=== PATIENT | female | born 1995 | race Caucasian/White ===

== ENCOUNTER → 2016-11-12 | Outpatient (CLI) | payer BC | END | disposition home or self-care (01) | LOC: MW.CHFP 15:20 | PROVIDERS: ATTEND Physician Assistant | DX: R68.89 Other general symptoms and signs (principal) | CPT/HCPCS: 87804 ==

== ENCOUNTER 2017-11-07 15:32 | Emergency (ER) | payer BC ==
--- NOTE | 2017-11-07 16:02 | EDM.PDOC ---
ED HPI GENERAL MEDICAL PROBLEM - General Chief Complaint: General Stated Complaint: FEVER AND BODYACHES Time Seen by Provider: 11/07/17 15:38 Source of Information: Reports: Patient History Limitations: Reports: No Limitations - History of Present Illness INITIAL COMMENTS - FREE TEXT/NARRATIVE: HISTORY AND PHYSICAL: History of present illness: Patient is a 22-year-old female who presents to the emergency room with complaints of fever, chills and cough since this morning. She denies any chest pain, shortness of breath, abdominal pain, nausea, vomiting or diarrhea/ constipation. She has received the influenza vaccine. Review of systems: As per history of present illness and below otherwise all systems reviewed and negative. Past medical history: As per history of present illness and as reviewed below otherwise noncontributory. Surgical history: As per history of present illness and as reviewed below otherwise noncontributory. Social history: No reported history of drug or alcohol abuse. Family history: As per history of present illness and as reviewed below otherwise noncontributory. Physical exam: General: Well-developed and well-nourished 22-year-old female. Alert and oriented. Nontoxic appearing and in no acute distress. HEENT: Atraumatic, normocephalic, pupils reactive, negative for conjunctival pallor or scleral icterus, mucous membranes dry, cobblestoning noted otherwise throat clear, neck supple, nontender, trachea midline. Lungs: Diminished throughout, breath sounds equal bilaterally, chest nontender. Heart: S1S2, regular, negative for clicks, rubs, or JVD. Abdomen: Soft, nondistended, nontender. Negative for masses or hepatosplenomegaly. Negative for costovertebral tenderness. Pelvis: Stable nontender. Genitourinary: Deferred. Rectal: Deferred. Extremities: Atraumatic, negative for cords or calf pain. Neurovascular unremarkable. Neuro: Awake, alert, oriented. Cranial nerves II through XII unremarkable. Cerebellum unremarkable. Motor and sensory unremarkable throughout. Exam nonfocal. Patient's pulse is tachycardic and she states she does not feel well. I will give her a liter of normal saline and Tylenol along with routine lab work. CBC, CMP are normal. + Mononucleousis. BP has been low, I did offer her admssion at this time. Patient would like to finish her fluids, patient reports "I'm always low" and her mother states she is usually 100/50's. Will let patient continue fluids and reassess admission status. CXR is negative for pneumonia. Incidental finding of soft tissue prominence to the left mediastinum as discussed which could represent prominent main pulmonary artery, tumor or adenopathy. Due to the patient having +monospot (may be the adenopathy from the mono), informed patient of this finding and requested she follow up with her PCP for re-evaluation once the mono has resolved. Blood pressure is now 100/60. I did offer them admission again. They state they will go home as patient feels improved and her mother is staying with her. Supportive care measures were reviewed with her. They deny any further questions at this time. Diagnostics: CBC, CMP, Influenza, CXR, monospot, blood culture, UA Therapeutics: 1 liter NS, Tylenol, Ibuprofen Impression: Mononucleousis Plan: 1. Labs were normal with the exception of +Monospot and Chest x-ray lymph node. There was an enlarged soft tissue area noted that should be re-looked at once here illness has resolved. This is likely just an enlarged lymph node due to your mono illness. 2. Supportive care measures such as Tylenol and or ibuprofen as needed for pain and fever management. Please drink small frequent sips of fluids to prevent dehydration. Zofran has been prescribed for you to alleviate nausea. Phenergan with codeine to alleviate discomfort associated with your cough. This medication may cause drowsiness suture do not take it while driving or needing to be functioning at work. 3. Chicot is contagious so please be sure you're doing good handwashing and not sharing any eating utensils. 4. Please avoid any contact sports and be careful with any injury to the abdomen. As we discussed you are at increased risk for splenic injury. 5. No work for the next 4 days. Please follow-up with your primary care provider for further work restrictions or release back to work. 6. If at any time year symptoms worsen please return to the emergency room as needed and as discussed. Definitive disposition and diagnosis as appropriate pending reevaluation and review of above. Onset: Today Duration: Hour(s): Location: Reports: Head, Chest Generalized Pain Score (Numeric/FACES): 4 - Related Data Allergies Allergy/AdvReac Type Severity Reaction Status Date / Time amoxicillin [From Augmentin] Allergy Rash Verified 11/07/17 15:47 clarithromycin [From Biaxin] Allergy Rash Verified 11/07/17 15:47 clavulanic acid Allergy Rash Verified 11/07/17 15:47 [From Augmentin] Home Meds: Home Meds Escitalopram [Lexapro] 10 mg PO BEDTIME 11/07/17 [History] ED ROS GENERAL - Review of Systems Review Of Systems: ROS reveals no pertinent complaints other than HPI. ED EXAM, GENERAL - Physical Exam Exam: See Below (See dictation) Course - Vital Signs Last Recorded V/S: Last Vital Signs Temp 99.5 F 11/07/17 18:47 Pulse 104 H 11/07/17 18:47 Resp 18 11/07/17 18:47 BP 100/60 11/07/17 18:47 Pulse Ox 98 11/07/17 18:47 - Orders/Labs/Meds Orders: Active Orders 24 hr Category Date Time Status RT Aerosol Therapy [RC] ASDIRECTED Care 11/07/17 16:11 Active Chest 2V [CR] Stat Exams 11/07/17 16:06 Taken CULTURE BLOOD [BC] Stat Lab 11/07/17 16:27 Results CULTURE BLOOD [BC] Stat Lab 11/07/17 18:26 Received Blood Culture x2 Reflex Set [OM.PC] Stat Oth 11/07/17 17:49 Ordered Labs: Laboratory Tests 11/07/17 11/07/17 11/07/17 Range/Units 16:27 16:27 16:27 WBC 6.12 (4.0-11.0) K/uL RBC 5.11 (4.30-5.90) M/uL Hgb 14.8 (12.0-16.0) g/dL Hct 43.6 (36.0-46.0) % MCV 85.3 (80.0-98.0) fL MCH 29.0 (27.0-32.0) pg MCHC 33.9 (31.0-37.0) g/dL RDW Std Deviation 39.5 (28.0-62.0) fl RDW Coeff of Adelaida 13 (11.0-15.0) % Plt Count 266 (150-400) K/uL MPV 9.60 (7.40-12.00) fL Neut % (Auto) 73.2 (48.0-80.0) % Lymph % (Auto) 11.3 L (16.0-40.0) % Ch[place]ot % (Auto) 13.6 (0.0-15.0) % Eos % (Auto) 1.6 (0.0-7.0) % Baso % (Auto) 0.3 (0.0-1.5) % Neut # (Auto) 4.5 (1.4-5.7) K/uL Lymph # (Auto) 0.7 (0.6-2.4) K/uL Ch[place]ot # (Auto) 0.8 (0.0-0.8) K/uL Eos # (Auto) 0.1 (0.0-0.7) K/uL Baso # (Auto) 0.0 (0.0-0.1) K/uL Nucleated RBC % 0.0 /100WBC Nucleated RBCs # 0 K/uL Lactate (0.20-2.00) mmol/L Sodium 137 (136-145) mmol/L Potassium 3.8 (3.5-5.1) mmol/L Chloride 101 (98-107) mmol/L Carbon Dioxide 23.4 (21.0-32.0) mmol/L BUN 9 (7.0-18.0) mg/dL Creatinine 0.6 (0.6-1.0) mg/dL Est Cr Clr Drug Dosing 128.08 mL/min Estimated GFR (MDRD) > 60.0 ml/min Glucose 88 (74-106) mg/dL Calcium 9.3 (8.5-10.1) mg/dL Total Bilirubin 0.3 (0.2-1.0) mg/dL AST 20 (15-37) IU/L ALT 17 (14-63) IU/L Alkaline Phosphatase 92 (46-116) U/L Total Protein 8.4 H (6.4-8.2) g/dL Albumin 4.5 (3.4-5.0) g/dL Globulin 3.9 H (2.0-3.5) g/dL Albumin/Globulin Ratio 1.2 L (1.3-2.8) Urine Color Urine Appearance Urine pH (5.0-8.0) Ur Specific Friendship (1.001-1.035) Urine Protein (NEGATIVE) mg/dL Urine Glucose (UA) (NEGATIVE) mg/dL Urine Ketones (NEGATIVE) mg/dL Urine Occult Blood (NEGATIVE) Urine Nitrite (NEGATIVE) Urine Bilirubin (NEGATIVE) Urine Urobilinogen (<2.0) EU/dL Ur Leukocyte Esterase (NEGATIVE) Urine RBC (0-2/HPF) Urine WBC (0-5/HPF) Ur Epithelial Cells (NONE-FEW) Urine Bacteria (NEGATIVE) Urine HCG, Qual (NEGATIVE) Monoscreen POSITIVE (NEG) 11/07/17 11/07/17 11/07/17 Range/Units 16:27 18:00 18:00 WBC (4.0-11.0) K/uL RBC (4.30-5.90) M/uL Hgb (12.0-16.0) g/dL Hct (36.0-46.0) % MCV (80.0-98.0) fL MCH (27.0-32.0) pg MCHC (31.0-37.0) g/dL RDW Std Deviation (28.0-62.0) fl RDW Coeff of Adelaida (11.0-15.0) % Plt Count (150-400) K/uL MPV (7.40-12.00) fL Neut % (Auto) (48.0-80.0) % Lymph % (Auto) (16.0-40.0) % Ch[place]ot % (Auto) (0.0-15.0) % Eos % (Auto) (0.0-7.0) % Baso % (Auto) (0.0-1.5) % Neut # (Auto) (1.4-5.7) K/uL Lymph # (Auto) (0.6-2.4) K/uL Ch[place]ot # (Auto) (0.0-0.8) K/uL Eos # (Auto) (0.0-0.7) K/uL Baso # (Auto) (0.0-0.1) K/uL Nucleated RBC % /100WBC Nucleated RBCs # K/uL Lactate 1.1 (0.20-2.00) mmol/L Sodium (136-145) mmol/L Potassium (3.5-5.1) mmol/L Chloride (98-107) mmol/L Carbon Dioxide (21.0-32.0) mmol/L BUN (7.0-18.0) mg/dL Creatinine (0.6-1.0) mg/dL Est Cr Clr Drug Dosing mL/min Estimated GFR (MDRD) ml/min Glucose (74-106) mg/dL Calcium (8.5-10.1) mg/dL Total Bilirubin (0.2-1.0) mg/dL AST (15-37) IU/L ALT (14-63) IU/L Alkaline Phosphatase (46-116) U/L Total Protein (6.4-8.2) g/dL Albumin (3.4-5.0) g/dL Globulin (2.0-3.5) g/dL Albumin/Globulin Ratio (1.3-2.8) Urine Color YELLOW Urine Appearance CLEAR Urine pH 6.5 (5.0-8.0) Ur Specific Friendship 1.010 (1.001-1.035) Urine Protein NEGATIVE (NEGATIVE) mg/dL Urine Glucose (UA) NEGATIVE (NEGATIVE) mg/dL Urine Ketones NEGATIVE (NEGATIVE) mg/dL Urine Occult Blood NEGATIVE (NEGATIVE) Urine Nitrite NEGATIVE (NEGATIVE) Urine Bilirubin NEGATIVE (NEGATIVE) Urine Urobilinogen 0.2 (<2.0) EU/dL Ur Leukocyte Esterase NEGATIVE (NEGATIVE) Urine RBC 2-4 (0-2/HPF) Urine WBC 0-2 (0-5/HPF) Ur Epithelial Cells FEW (NONE-FEW) Urine Bacteria FEW (NEGATIVE) Urine HCG, Qual NEGATIVE (NEGATIVE) Monoscreen (NEG) Meds: Medications Discontinued Medications Generic Name Dose Route Start Last Admin Trade Name Freq PRN Reason Stop Dose Admin Acetaminophen 1,000 mg 11/07/17 16:06 11/07/17 16:20 Tylenol Extra Strength PO 11/07/17 16:07 1,000 mg ONETIME ONE Administration Albuterol/Ipratropium 3 ml 11/07/17 16:11 11/07/17 16:20 Duoneb 3.0-0.5 Mg/3 Ml NEB 11/07/17 16:12 3 ml ONETIME ONE Administration Sodium Chloride 1,000 mls @ 999 mls/hr 11/07/17 16:06 11/07/17 16:21 Normal Saline IV 11/07/17 17:06 999 mls/hr STAT ONE Administration Ibuprofen 600 mg 11/07/17 18:20 11/07/17 18:47 Motrin PO 11/07/17 18:21 Not Given ONETIME ONE Ibuprofen 600 mg 11/07/17 18:42 11/07/17 18:47 Motrin PO 11/07/17 18:43 600 mg ONETIME ONE Administration Ibuprofen Confirm 11/07/17 18:42 11/07/17 18:47 Motrin Administered 11/07/17 18:43 Not Given Dose 600 mg .ROUTE .STK-MED ONE Departure - Departure Time of Disposition: 18:55 Disposition: Home, Self-Care 01 Clinical Impression: Mononucleosis - Discharge Information Instructions: Infectious Mononucleosis, [id number] Referrals: PCP,None [Primary Care Provider] - Forms: ED Department Discharge Additional Instructions: My general discharge The following information is given to patients seen in the emergency department who are being discharged to home. This information is to outline your options for follow-up care. We provide all patients seen in our emergency department with a follow-up referral. The need for follow-up, as well as the timing and circumstances, are variable depending upon the specifics of your emergency department visit. If you don't have a primary care physician on staff, we will provide you with a referral. We always advise you to contact your personal physician following an emergency department visit to inform them of the circumstance of the visit and for follow-up with them and/or the need for any referrals to a consulting specialist. The emergency department will also refer you to a specialist when appropriate. This referral assures that you have the opportunity for follow-up care with a specialist. All of these measure are taken in an effort to provide you with optimal care, which includes your follow-up. Under all circumstances we always encourage you to contact your private physician who remains a resource for coordinating your care. When calling for follow-up care, please make the office aware that this follow-up is from your recent emergency room visit. If for any reason you are refused follow-up, please contact the [facility] Emergency Department at and asked to speak to the emergency department charge nurse. [facility] Primary Care [address] [place] [id number] 1. Labs were normal with the exception of +Monospot and Chest x-ray lymph node. There was an enlarged soft tissue area noted that should be re-looked at once here illness has resolved. This is likely just an enlarged lymph node due to your mono illness. 2. Supportive care measures such as Tylenol and or ibuprofen as needed for pain and fever management. Please drink small frequent sips of fluids to prevent dehydration. Zofran has been prescribed for you to alleviate nausea. Phenergan with codeine to alleviate discomfort associated with your cough. This medication may cause drowsiness suture do not take it while driving or needing to be functioning at work. 3. Chicot is contagious so please be sure you're doing good handwashing and not sharing any eating utensils. 4. Please avoid any contact sports and be careful with any injury to the abdomen. As we discussed you are at increased risk for splenic injury. 5. No work for the next 4 days. Please follow-up with your primary care provider for further work restrictions or release back to work. 6. If at any time year symptoms worsen please return to the emergency room as needed and as discussed. - My Orders Last 24 Hours: My Active Orders 11/07/17 16:06 Chest 2V [CR] Stat 11/07/17 16:11 RT Aerosol Therapy [RC] ASDIRECTED 11/07/17 16:27 CULTURE BLOOD [BC] Stat 11/07/17 17:49 Blood Culture x2 Reflex Set [OM.PC] Stat 11/07/17 18:26 CULTURE BLOOD [BC] Stat - Assessment/Plan Last 24 Hours: My Active Orders 11/07/17 16:06 Chest 2V [CR] Stat 11/07/17 16:11 RT Aerosol Therapy [RC] ASDIRECTED 11/07/17 16:27 CULTURE BLOOD [BC] Stat 11/07/17 17:49 Blood Culture x2 Reflex Set [OM.PC] Stat 11/07/17 18:26 CULTURE BLOOD [BC] Stat
[2017-11-07] MEDS ORDERED: Sodium Chloride 0.9% 1,000 ML IV ONE (16:06)
[2017-11-07] MEDS ORDERED: Acetaminophen 500 MG Tab PO ONE (16:06)
[2017-11-07] MEDS ORDERED: Albuterol/Ipratropium 3.0-0.5 MG/3 ML Neb Soln NEB ONE (16:11)
[2017-11-07 17:09] LABS: CHLORIDE,CL 101 mmol/L (98-107); SODIUM,NA 137 mmol/L (136-145)
[2017-11-07] MEDS ORDERED: Ibuprofen 200 MG Tab PO ONE (18:20)
[2017-11-07] MEDS ORDERED: Ibuprofen 600 MG Tab PO ONE (18:42)
[2017-11-07] MEDS ORDERED: Ibuprofen 600 MG Tab ONE (18:42)
--- NOTE | 2017-11-09 11:32 | CR ---
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 Site : 1996 Study: XRay Chest [id number] 5:06:56 PM Ordering Physician: Doctor Wren Final Report: HISTORY: Fever and cough. FINDINGS: Two views of the chest are provided. The lungs are normally expanded and clear. No pleural effusion or pneumothorax is noted. Cardiac silhouette size is within normal limits. There is a soft tissue prominence to the left lateral aspect of the mid mediastinum on the PA view only. In this location this could represent a prominent main pulmonary artery and but the hilar vessels appear unremarkable. The possibility for soft tissue mass or adenopathy is not excluded. IMPRESSION: 1. Negative study for pneumonia. 2. Soft tissue prominence to the left mediastinum as discussed which could represent prominent main pulmonary artery. Possibility for tumor or adenopathy is not excluded. Comparison with any previous chest radiographs elsewhere would be helpful. If there are no previous studies for comparison, consider CT scan for further evaluation. Dictated by Randell Huang MD @ Nov 07 2017 5:13PM (Electronic Signature) Report Signed by Proxy. LLUVIA
== END 2017-11-07 19:10 | disposition home or self-care (01) ==
LOC: MW.ED 15:32
DX: B27.90 Infectious mononucleosis, unspecified without complication (principal); Z79.899 Other long term (current) drug therapy; Z88.1 Allergy status to other antibiotic agents; Z88.8 Allergy status to other drugs, medicaments and biological substances
CPT/HCPCS: 36415; 71046; 80053; 81001; 81025; 83605; 85025; 86308; 87040; 87804; 94640; 96360; 99284; A9270; J7040

== ENCOUNTER 2019-03-05 10:41 | Emergency (ER) | payer BC ==
--- NOTE | 2019-03-05 10:57 | EDM.PDOC ---
ED HPI GENERAL MEDICAL PROBLEM - General Chief Complaint: Lower Extremity Injury/Pain Stated Complaint: INJURY TO LT FOOT Time Seen by Provider: 03/05/19 10:53 Source of Information: Reports: Patient History Limitations: Reports: No Limitations - History of Present Illness INITIAL COMMENTS - FREE TEXT/NARRATIVE: HISTORY AND PHYSICAL: History of present illness: Patient is a 23-year-old female presents to ED with complaint of left foot pain. He states yesterday she was walking down some steps when she twisted her ankle after stepping on a shoe and landed on her left foot. She has been able to walk on it is painful and she has to limp. She took ibuprofen last night. Review of systems: As per history of present illness and below otherwise all systems reviewed and negative. Past medical history: As per history of present illness and as reviewed below otherwise noncontributory. Surgical history: As per history of present illness and as reviewed below otherwise noncontributory. Social history: No reported history of drug or alcohol abuse. Family history: As per history of present illness and as reviewed below otherwise noncontributory. Physical exam: General: Patient sitting comfortably in no acute distress and nontoxic appearing HEENT: Atraumatic, normocephalic, pupils reactive, negative for conjunctival pallor or scleral icterus, mucous membranes moist, throat clear, neck supple, nontender, trachea midline. No meningeal signs. Lungs: Clear to auscultation, breath sounds equal bilaterally, chest nontender. Heart: S1S2, regular, negative for clicks, rubs, or overt murmur. Abdomen: Soft, nondistended, nontender. Negative for masses or hepatosplenomegaly. Negative for costovertebral tenderness. No rigidity, rebound , guarding. Pelvis: Stable nontender. Genitourinary: Deferred. Rectal: Deferred. Extremities: No obvious swelling or deformity of the left foot. End palpation along the proximal first metatarsal. No lateral or medial malleolus pain to palpation. Atraumatic, negative for cords or calf pain. Neurovascular unremarkable. Neuro: Awake, alert, oriented. Cranial nerves II through XII unremarkable. Cerebellum unremarkable. Motor and sensory unremarkable throughout. Exam nonfocal. Notes: Diagnostics: Left foot x-ray Therapeutics: [] Prescriptions: Impression: [] Plan: 1. Ice, elevate, and motrin as instructed 2. Follow up with podiatry, call number provided to schedule an appointment 3. Return to ED as needed as discussed Definitive disposition and diagnosis as appropriate pending reevaluation and review of above. Left Ankle Pain Score (Numeric/FACES): 2 - Related Data Allergies Allergy/AdvReac Type Severity Reaction Status Date / Time amoxicillin [From Augmentin] Allergy Rash Verified 03/05/19 10:58 clarithromycin [From Biaxin] Allergy Rash Verified 03/05/19 10:58 clavulanic acid Allergy Rash Verified 03/05/19 10:58 [From Augmentin] Home Meds: Home Meds . 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 Neurological History: Reports: None Psychiatric History: Reports: Anxiety Endocrine/Metabolic History: Reports: None Hematologic History: Reports: None Immunologic History: Reports: None Oncologic (Cancer) History: Reports: None Dermatologic History: Reports: None - Infectious Disease History Infectious Disease History: Reports: None - Past Surgical History Head Surgeries/Procedures: Reports: None HEENT Surgical History: Reports: Adenoidectomy, Tonsillectomy Musculoskeletal Surgical History: Reports: Other (See Below) Other Musculoskeletal Surgeries/Procedures:: left wrist and leg at [facility] Social & Family History - Caffeine Use Caffeine Use: Reports: None Review of Systems - Review of Systems Review Of Systems: ROS reveals no pertinent complaints other than HPI. ED EXAM, GENERAL - Physical Exam Exam: See Below (see dictation) Course - Vital Signs Last Recorded V/S: Last Vital Signs Temp 97.4 F 03/05/19 10:53 Pulse 85 03/05/19 10:53 Resp 18 03/05/19 10:53 BP 102/62 03/05/19 10:53 Pulse Ox 95 03/05/19 10:53 Departure - Departure Time of Disposition: 11:44 Disposition: Home, Self-Care 01 Condition: Good Clinical Impression: Foot injury Qualifiers: Encounter type: initial encounter Laterality: left Qualified Code(s): S99.922A - Unspecified injury of left foot, initial encounter - Discharge Information Referrals: PCP,Unknown [Primary Care Provider] - Forms: ED Department Discharge Additional Instructions: The following information is given to patients seen in the emergency department who are being discharged to home. This information is to outline your options for follow-up care. We provide all patients seen in our emergency department with a follow-up referral. The need for follow-up, as well as the timing and circumstances, are variable depending upon the specifics of your emergency department visit. If you don't have a primary care physician on staff, we will provide you with a referral. We always advise you to contact your personal physician following an emergency department visit to inform them of the circumstance of the visit and for follow-up with them and/or the need for any referrals to a consulting specialist. The emergency department will also refer you to a specialist when appropriate. This referral assures that you have the opportunity for follow-up care with a specialist. All of these measure are taken in an effort to provide you with optimal care, which includes your follow-up. Under all circumstances we always encourage you to contact your private physician who remains a resource for coordinating your care. When calling for follow-up care, please make the office aware that this follow-up is from your recent emergency room visit. If for any reason you are refused follow-up, please contact the [facility] Emergency Department at and asked to speak to the emergency department charge nurse. [facility] [address] [place] [id number] [facility] Primary Care - Podiatry [address] [place] [id number] 1. Ice, elevate, and motrin as instructed 2. Follow up with podiatry, call number provided to schedule an appointment 3. Return to ED as needed as discussed
--- NOTE | 2019-03-05 11:38 | CR ---
INDICATION: Left foot injury with pain TECHNIQUE: 3 views left foot COMPARISON: None FINDINGS: Three views of the left foot reveal no fracture, malalignment or acute osseous abnormality. IMPRESSION: Negative. Dictated by Terry Dominguez MD @ Mar 05 2019 11:33AM Signed by Dr. Terry Dominguez @ Mar 05 2019 11:37AM
== END 2019-03-05 11:56 | disposition home or self-care (01) ==
LOC: MW.ED 10:41
DX: S99.922A Unspecified injury of left foot, initial encounter (principal); Z98.890 Other specified postprocedural states; Z88.1 Allergy status to other antibiotic agents; X50.1XXA Overexertion from prolonged static or awkward postures, initial encounter
CPT/HCPCS: 73620-26-LT; 73620-LT; 99283-25

== ENCOUNTER 2019-06-13 10:45 | Emergency (ER) | payer BC ==
--- NOTE | 2019-06-13 10:53 | EDM.PDOC ---
ED HPI GENERAL MEDICAL PROBLEM - General Chief Complaint: Respiratory Problem Stated Complaint: COUGH Time Seen by Provider: 06/13/19 10:47 Source of Information: Reports: Patient History Limitations: Reports: No Limitations - History of Present Illness INITIAL COMMENTS - FREE TEXT/NARRATIVE: HISTORY AND PHYSICAL: History of present illness: Patient is a 23-year-old female who presents to the emergency room today with complaints of dry non-productive cough and fever. She states symptoms started last evening, with a fever of 102F which came down with Tylenol. She states this morning she had a subjective fever and took Tylenol again just prior to arrival. She states she is concerned that she has the "flu". She does have some bilateral eye irritation, and felt they were "matted" this morning. Patient denies any headache, change in vision, syncope or near syncope. Denies any chest pain, back pain, shortness of breath. Denies any abdominal pain, nausea, vomiting, diarrhea, constipation or dysuria. Denies any chance of . Has not noted any blood in urine or stool. Patient has been eating and drinking appropriately. Review of systems: As per history of present illness and below otherwise all systems reviewed and negative. Past medical history: As per history of present illness and as reviewed below otherwise noncontributory. Surgical history: As per history of present illness and as reviewed below otherwise noncontributory. Social history: See social history for further information Family history: As per history of present illness and as reviewed below otherwise noncontributory. Physical exam: General: Well-developed and well-nourished 23-year-old female. Alert and oriented. Nontoxic appearing and in no acute distress. HEENT: Atraumatic, normocephalic, pupils equal and reactive bilaterally, negative for conjunctival pallor or scleral icterus, bilateral scleral injection , mucous membranes moist, TMs normal bilaterally, throat clear, neck supple, nontender, trachea midline. No drooling or trismus noted. No meningeal signs. No hot potato voice noted. Lungs: Clear to auscultation, breath sounds equal bilaterally, chest nontender. Heart: S1S2, regular rate and rhythm without overt murmur Abdomen: Soft, nondistended, nontender. Negative for masses or hepatosplenomegaly. Negative for costovertebral tenderness. Pelvis: Stable nontender. Skin: Intact, warm, dry. No lesions or rashes noted. Extremities: Atraumatic, moves all extremities per self without difficulty or deficits, negative for cords or calf pain. Neurovascular unremarkable. Neuro: Awake, alert, oriented. Cranial nerves II through XII unremarkable. Cerebellum unremarkable. Motor and sensory unremarkable throughout. Exam nonfocal. Notes: Patient reports that her blood pressure does run "low usually" but does not know what numbers she usually runs. Looking at her previous ER visits she has ran 100's/60's. She states she does not feel near syncopal or dizzy with position changes are ambulation. She is agreeable to some basic lab work along with IV fluids at this time. Involved Dr Beard in this case. Patient does have a leukocytosis although do not have a definitive source. Chest x-ray is being read as normal. Admission was offered, she declines. Patient and father at bedside were thoroughly discussed the risks vs benefits of leaving/admission. They continue to wish to be discharged to home. Patient declines additional lab testing, she states she was able to get a follow up appointment with her PCP tomorrow for re- evaluation. States she "lives just across the street" and will return if she has worsening or new symptoms. Diagnostics: CBC, BMP, lactic, blood culture Therapeutics: IV fluids, Levaquin Prescription: Zpak Impression: Leukocytosis Hypotension Conjunctivitis, bilateral Plan: 1. Please abstain from exposing other people (work, school, etc...) until you are fever free for 24 hours. Good hand washing - contact precautions. 2. Tylenol and/or ibuprofen as needed for pain and fever management. Please encourage small frequent sips of fluids to prevent dehydration. 3. Follow-up with your primary care provider in the next 1-2 days (keep your appointment for tomorrow). Return to the ED as needed and as discussed. Definitive disposition and diagnosis as appropriate pending reevaluation and review of above. eyes Pain Score (Numeric/FACES): 3 - Related Data Allergies Allergy/AdvReac Type Severity Reaction Status Date / Time amoxicillin [From Augmentin] Allergy Rash Verified 06/13/19 10:55 clarithromycin [From Biaxin] Allergy Rash Verified 06/13/19 10:55 clavulanic acid Allergy Rash Verified 06/13/19 10:55 [From Augmentin] Home Meds: Home Meds . 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 Neurological History: Reports: None Psychiatric History: Reports: Anxiety Endocrine/Metabolic History: Reports: None Hematologic History: Reports: None Immunologic History: Reports: None Oncologic (Cancer) History: Reports: None Dermatologic History: Reports: None - Infectious Disease History Infectious Disease History: Reports: None - Past Surgical History Head Surgeries/Procedures: Reports: None HEENT Surgical History: Reports: Adenoidectomy, Tonsillectomy Musculoskeletal Surgical History: Reports: Other (See Below) Other Musculoskeletal Surgeries/Procedures:: left wrist and leg at [facility] Social & Family History - Family History Family Medical History: Noncontributory - Caffeine Use Caffeine Use: Reports: None ED ROS GENERAL - Review of Systems Review Of Systems: ROS reveals no pertinent complaints other than HPI. ED EXAM, GENERAL - Physical Exam Exam: See Below (See dictation) Course - Vital Signs Last Recorded V/S: Last Vital Signs Temp 97.8 F 06/13/19 13:08 Pulse 90 06/13/19 13:08 Resp 18 06/13/19 13:08 BP 88/47 L 06/13/19 13:08 Pulse Ox 100 06/13/19 13:08 - Orders/Labs/Meds Orders: Active Orders 24 hr Category Date Time Status HCG QUALITATIVE,URINE [URCHEM] Stat Lab 06/13/19 11:54 Ordered UA RFX NANI AND CULT IF INDIC [URIN] Stat Lab 06/13/19 11:53 Ordered Blood Culture x2 Reflex Set [OM.PC] Stat Oth 06/13/19 11:53 Ordered Labs: Laboratory Tests 06/13/19 06/13/19 Range/Units 11:34 11:34 WBC 15.75 H (4.0-11.0) K/uL RBC 4.46 (4.30-5.90) M/uL Hgb 13.3 (12.0-16.0) g/dL Hct 39.0 (36.0-46.0) % MCV 87.4 (80.0-98.0) fL MCH 29.8 (27.0-32.0) pg MCHC 34.1 (31.0-37.0) g/dL RDW Std Deviation 41.0 (28.0-62.0) fl RDW Coeff of Adelaida 13 (11.0-15.0) % Plt Count 272 (150-400) K/uL MPV 9.20 (7.40-12.00) fL Neut % (Auto) 91.8 H (48.0-80.0) % Lymph % (Auto) 3.0 L (16.0-40.0) % [place] % (Auto) 4.6 (0.0-15.0) % Eos % (Auto) 0.4 (0.0-7.0) % Baso % (Auto) 0.2 (0.0-1.5) % Neut # (Auto) 14.5 H (1.4-5.7) K/uL Lymph # (Auto) 0.5 L (0.6-2.4) K/uL [place] # (Auto) 0.7 (0.0-0.8) K/uL Eos # (Auto) 0.1 (0.0-0.7) K/uL Baso # (Auto) 0.0 (0.0-0.1) K/uL Nucleated RBC % 0.0 /100WBC Nucleated RBCs # 0 K/uL Sodium 138 (136-145) mmol/L Potassium 3.3 L (3.5-5.1) mmol/L Chloride 103 (98-107) mmol/L Carbon Dioxide 23.5 (21.0-32.0) mmol/L BUN 13 (7.0-18.0) mg/dL Creatinine 0.8 (0.6-1.0) mg/dL Est Cr Clr Drug Dosing 95.25 mL/min Estimated GFR (MDRD) > 60.0 ml/min Glucose 117 H (74-106) mg/dL Calcium 8.5 (8.5-10.1) mg/dL Meds: Medications Discontinued Medications Generic Name Dose Route Start Last Admin Trade Name Freq PRN Reason Stop Dose Admin Sodium Chloride 1,000 mls @ 999 mls/hr 06/13/19 10:56 06/13/19 11:30 Normal Saline IV 06/13/19 11:56 999 mls/hr STAT ONE Administration Levofloxacin/Dextrose 750 mg/ 150 mls @ 100 mls/hr 06/13/19 11:53 06/13/19 12 :38 Premix IV 06/13/19 13:22 Not Given ONETIME ONE Ondansetron HCl 4 mg 06/13/19 11:49 06/13/19 11:55 Zofran IVPUSH 06/13/19 11:50 4 mg ONETIME ONE Administration Polymyxin/Trimethoprim Sulfate 1 ml 06/13/19 12:41 06/13/19 13:03 Polytrim Ophth Soln EYEBOTH 06/13/19 12:42 1 ml ONETIME ONE Administration Departure - Departure Time of Disposition: 12:40 Disposition: Home, Self-Care 01 Clinical Impression: Leukocytosis Qualifiers: Leukocytosis type: unspecified Qualified Code(s): D72.829 - Elevated white blood cell count, unspecified Hypotension Qualifiers: Hypotension type: unspecified hypotension type Qualified Code(s): I95.9 - Hypotension, unspecified Conjunctivitis Qualifiers: Conjunctivitis type: unspecified Laterality: bilateral Qualified Code(s): H10.9 - Unspecified conjunctivitis - Discharge Information Instructions: Bacterial Conjunctivitis, [id number], Hypotension, [id number] , Leukocytosis Referrals: Drew Ashley MD [Primary Care Provider] - Forms: ED Department Discharge Additional Instructions: The following information is given to patients seen in the emergency department who are being discharged to home. This information is to outline your options for follow-up care. We provide all patients seen in our emergency department with a follow-up referral. The need for follow-up, as well as the timing and circumstances, are variable depending upon the specifics of your emergency department visit. If you don't have a primary care physician on staff, we will provide you with a referral. We always advise you to contact your personal physician following an emergency department visit to inform them of the circumstance of the visit and for follow-up with them and/or the need for any referrals to a consulting specialist. The emergency department will also refer you to a specialist when appropriate. This referral assures that you have the opportunity for follow-up care with a specialist. All of these measure are taken in an effort to provide you with optimal care, which includes your follow-up. Under all circumstances we always encourage you to contact your private physician who remains a resource for coordinating your care. When calling for follow-up care, please make the office aware that this follow-up is from your recent emergency room visit. If for any reason you are refused follow-up, please contact the [facility] Emergency Department at and asked to speak to the emergency department charge nurse. [facility] [address] [place] [address] [facility] [address] [place] [address] 1. Please abstain from exposing other people (work, school, etc...) until you are fever free for 24 hours. Good hand washing - contact precautions. 2. Tylenol and/or ibuprofen as needed for pain and fever management. Please encourage small frequent sips of fluids to prevent dehydration. 3. One drop each eye of the Polytrim x 5-7 days. 4. Follow-up with your primary care provider in the next 1-2 days (keep your appointment for tomorrow). Return to the ED as needed and as discussed. - My Orders Last 24 Hours: My Active Orders 06/13/19 11:53 UA RFX NANI AND CULT IF INDIC [URIN] Stat Blood Culture x2 Reflex Set [OM.PC] Stat 06/13/19 11:54 HCG QUALITATIVE,URINE [URCHEM] Stat - Assessment/Plan Last 24 Hours: My Active Orders 06/13/19 11:53 UA RFX NANI AND CULT IF INDIC [URIN] Stat Blood Culture x2 Reflex Set [OM.PC] Stat 06/13/19 11:54 HCG QUALITATIVE,URINE [URCHEM] Stat
[2019-06-13] MEDS ORDERED: Sodium Chloride 0.9% 1,000 ML IV ONE (10:56)
--- NOTE | 2019-06-13 11:40 | CR ---
Chest: Two views of the chest were obtained. Comparison: Prior chest x-ray of 11/07/17. Heart size and mediastinum are normal. Lungs are clear. Bony structures are unremarkable for the patient's age. Impression: Nothing acute is seen on two-view chest x-ray. Diagnostic code #1 MTDD
[2019-06-13] MEDS ORDERED: Ondansetron 4 MG/2 ML SDV IVPUSH ONE (11:49)
[2019-06-13] MEDS ORDERED: Levofloxacin/Dextrose 5%-Water 750 MG in Premix Bag 1 BAG IV ONE (11:53)
[2019-06-13 12:06] LABS: BLOOD UREA NITROGEN,BUN 13 mg/dL (7.0-18.0); CARBON DIOXIDE,CO2 23.5 mmol/L (21.0-32.0); CHLORIDE,CL 103 mmol/L (98-107); GLUCOSE RANDOM 117 mg/dL (74-106); POTASSIUM,K 3.3 mmol/L (3.5-5.1); SODIUM,NA 138 mmol/L (136-145)
[2019-06-13] MEDS ORDERED: Polymyxin B/Trimethoprim 10 ML Bottle EYEBOTH ONE (12:41)
== END 2019-06-13 13:00 | disposition home or self-care (01) ==
LOC: MW.ED 10:45
DX: D72.829 Elevated white blood cell count, unspecified (principal); I95.9 Hypotension, unspecified; H10.9 Unspecified conjunctivitis; I10 Essential (primary) hypertension; Z88.1 Allergy status to other antibiotic agents
CPT/HCPCS: 36415; 71046; 80048; 85025; 87804; 96361; 96374; 99283; J2405; J7040

== ENCOUNTER 2019-06-19 19:31 | Emergency (ER) | payer BC ==
--- NOTE | 2019-06-19 20:12 | EDM.PDOC ---
ED HPI GENERAL MEDICAL PROBLEM - General Chief Complaint: General Stated Complaint: FLU SYMPTOMS Time Seen by Provider: 06/19/19 19:41 - History of Present Illness INITIAL COMMENTS - FREE TEXT/NARRATIVE: HISTORY AND PHYSICAL: History of present illness: Patient 23-year-old female presents with a concern of fever off and on 1 week she was seen as an outpatien in office as well as in the ER proximal week prior workup thus far been negative. Review of systems: As per history of present illness and below otherwise all systems reviewed and negative. Past medical history: As per history of present illness and as reviewed below otherwise noncontributory. Surgical history: As per history of present illness and as reviewed below otherwise noncontributory. Social history: No reported history of drug or alcohol abuse. Family history: As per history of present illness and as reviewed below otherwise noncontributory. Physical exam: HEENT: Atraumatic, normocephalic, pupils reactive, negative for conjunctival pallor or scleral icterus, mucous membranes moist, throat clear, neck supple, nontender, trachea midline. Lungs: Clear to auscultation, breath sounds equal bilaterally, chest nontender. Heart: S1S2, regular, negative for clicks, rubs, or JVD. Abdomen: Soft, nondistended, nontender. Negative for masses or hepatosplenomegaly. Negative for costovertebral tenderness. Pelvis: Stable nontender. Genitourinary: Deferred. Rectal: Deferred. Extremities: Atraumatic, negative for cords or calf pain. Neurovascular unremarkable. Neuro: Awake, alert, oriented. Cranial nerves II through XII unremarkable. Cerebellum unremarkable. Motor and sensory unremarkable throughout. Exam nonfocal. Diagnostics: CBC CMP UA influenza screen rapid strep chest x-ray Therapeutics: None Impression: #1 medical screening exam #2 history of fever #3 rule out viral syndrome Definitive disposition and diagnosis as appropriate pending reevaluation and review of above. headache Pain Score (Numeric/FACES): 5 - Related Data Allergies Allergy/AdvReac Type Severity Reaction Status Date / Time amoxicillin [From Augmentin] Allergy Rash Verified 06/19/19 19:39 clarithromycin [From Biaxin] Allergy Rash Verified 06/19/19 19:39 clavulanic acid Allergy Rash Verified 06/19/19 19:39 [From Augmentin] Home Meds: Home Meds . [No Known Home Meds] 03/05/19 [History] Past Medical History - Past Health History Medical/Surgical History: Denies Medical/Surgical History HEENT History: Reports: None Cardiovascular History: Reports: None Respiratory History: Reports: None Gastrointestinal History: Reports: None Genitourinary History: Reports: None RESPIRATORY CARE TECHNICIAN History: Reports: None Musculoskeletal History: Reports: None Neurological History: Reports: None Psychiatric History: Reports: Anxiety Endocrine/Metabolic History: Reports: None Hematologic History: Reports: None Immunologic History: Reports: None Oncologic (Cancer) History: Reports: None Dermatologic History: Reports: None - Infectious Disease History Infectious Disease History: Reports: None - Past Surgical History Head Surgeries/Procedures: Reports: None HEENT Surgical History: Reports: Adenoidectomy, Tonsillectomy Musculoskeletal Surgical History: Reports: Other (See Below) Other Musculoskeletal Surgeries/Procedures:: left wrist and leg at [facility] Social & Family History - Family History Family Medical History: Noncontributory - Tobacco Use Smoking Status *Q: Never Smoker Second Hand Smoke Exposure: No - Caffeine Use Caffeine Use: Reports: None - Recreational Drug Use Recreational Drug Use: No ED ROS GENERAL - Review of Systems Review Of Systems: ROS reveals no pertinent complaints other than HPI. ED EXAM, GENERAL - Physical Exam Exam: See Below (See dictation) Course - Vital Signs Last Recorded V/S: Last Vital Signs Temp 36.1 C 06/19/19 19:36 Pulse 95 06/19/19 19:36 Resp 18 06/19/19 19:36 BP 99/74 06/19/19 19:36 Pulse Ox 99 06/19/19 19:36 - Orders/Labs/Meds Orders: Active Orders 24 hr Category Date Time Status Oxygen Therapy, ED [RC] ASDIRECTED Care 06/19/19 19:50 Active Chest 1V Frontal [CR] Stat Exams 06/19/19 19:50 Ordered CBC WITH AUTO DIFF [HEME] Stat Lab 06/19/19 20:00 Received COMPREHENSIVE METABOLIC PN,CMP [CHEM] Stat Lab 06/19/19 20:00 Received INFLUENZA A+B AG SCREEN [RM] Stat Lab 06/19/19 19:50 Ordered STREP SCRN A RAPID W CULT CONF [RM] Stat Lab 06/19/19 19:55 Received UA RFX NANI AND CULT IF INDIC [URIN] Stat Lab 06/19/19 19:50 Ordered Departure - Departure Time of Disposition: 20:10 Disposition: Home, Self-Care 01 Condition: Good Clinical Impression: Encounter for medical screening examination, History of fever - Discharge Information Referrals: PCP,None [Primary Care Provider] - Additional Instructions: The following information is given to patients seen in the emergency department who are being discharged to home. This information is to outline your options for follow-up care. We provide all patients seen in our emergency department with a follow-up referral. The need for follow-up, as well as the timing and circumstances, are variable depending upon the specifics of your emergency department visit. If you don't have a primary care physician on staff, we will provide you with a referral. We always advise you to contact your personal physician following an emergency department visit to inform them of the circumstance of the visit and for follow-up with them and/or the need for any referrals to a consulting specialist. The emergency department will also refer you to a specialist when appropriate. This referral assures that you have the opportunity for followup care with a specialist. All of these measure are taken in an effort to provide you with optimal care, which includes your followup. Under all circumstances we always encourage you to contact your private physician who remains a resource for coordinating your care. When calling for followup care, please make the office aware that this follow-up is from your recent emergency room visit. If for any reason you are refused follow-up, please contact the [facility] emergency department at and asked to speak to the emergency department charge nurse. Motrin/Tylenol as directed push fluids follow with primary medical doctor return as needed as discussed - My Orders Last 24 Hours: My Active Orders 06/19/19 19:50 Oxygen Therapy, ED [RC] ASDIRECTED Chest 1V Frontal [CR] Stat INFLUENZA A+B AG SCREEN [RM] Stat UA RFX NANI AND CULT IF INDIC [URIN] Stat 06/19/19 19:55 STREP SCRN A RAPID W CULT CONF [RM] Stat 06/19/19 20:00 CBC WITH AUTO DIFF [HEME] Stat COMPREHENSIVE METABOLIC PN,CMP [CHEM] Stat - Assessment/Plan Last 24 Hours: My Active Orders 06/19/19 19:50 Oxygen Therapy, ED [RC] ASDIRECTED Chest 1V Frontal [CR] Stat INFLUENZA A+B AG SCREEN [RM] Stat UA RFX NANI AND CULT IF INDIC [URIN] Stat 06/19/19 19:55 STREP SCRN A RAPID W CULT CONF [RM] Stat 06/19/19 20:00 CBC WITH AUTO DIFF [HEME] Stat COMPREHENSIVE METABOLIC PN,CMP [CHEM] Stat
[2019-06-19 20:24] LABS: BLOOD UREA NITROGEN,BUN 9 mg/dL (7.0-18.0); CARBON DIOXIDE,CO2 22.5 mmol/L (21.0-32.0); CHLORIDE,CL 104 mmol/L (98-107); GLUCOSE RANDOM 77 mg/dL (74-106); POTASSIUM,K 3.7 mmol/L (3.5-5.1); SODIUM,NA 139 mmol/L (136-145)
--- NOTE | 2019-06-20 12:27 | CR ---
HISTORY: Cough. TECHNIQUE: Frontal view the chest. COMPARISON: Chest x-ray 06/13/2019. FINDINGS: Lungs are clear. No pleural effusion or pneumothorax. Pulmonary vasculature and cardiomediastinal silhouette are within normal limits. IMPRESSION: No cardiopulmonary abnormality. Dictated by Marek Bolanos MD @ Jun 19 2019 8:33PM Signed by: Marek Bolanos MD @06/19/2019 8:36:03 PM (Electronic Signature) MTDD
== END 2019-06-19 21:30 | disposition home or self-care (01) ==
LOC: MW.ED 19:31
DX: Z86.19 Personal history of other infectious and parasitic diseases (principal); Z13.9 Encounter for screening, unspecified; Z88.0 Allergy status to penicillin; Z88.1 Allergy status to other antibiotic agents
CPT/HCPCS: 36415; 71045; 71045-26; 80053; 81001; 85025; 87081; 87880-QW; 99283; 99284-25

== ENCOUNTER 2022-04-08 06:30 | Day surgery (SDC) | payer BC ==
[~2022-04-08 06:30] MED LIST: Lactated Ringers 1,000 ML IV SCH; Sodium Chloride 0.9% 10 ML Syringe FLUSH PRN; Sodium Chloride 0.9% 2.5 ML Syringe FLUSH PRN; Sodium Chloride 0.9% 20 ML SDV IV PRN
[2022-04-08] MEDS ORDERED: Propofol 200 MG/20 ML SDV ONE (07:27)
[2022-04-08] MEDS ORDERED: Lidocaine 2% 5 ML SDV ONE (07:27)
[2022-04-08] MEDS ORDERED: fentaNYL 100 MCG/2 ML SDV ONE (07:27)
== END 2022-04-08 09:11 | disposition home or self-care (01) ==
LOC: MW.SDS 06:30
PROVIDERS: ATTEND Surgery
DX: K52.9 Noninfective gastroenteritis and colitis, unspecified (principal); F41.9 Anxiety disorder, unspecified; J30.9 Allergic rhinitis, unspecified; G43.009 Migraine without aura, not intractable, without status migrainosus; Z98.890 Other specified postprocedural states; Z88.1 Allergy status to other antibiotic agents; Z88.0 Allergy status to penicillin; Z91.048 Other nonmedicinal substance allergy status; Z79.899 Other long term (current) drug therapy
CPT/HCPCS: 45380; 81025; J2704; J3010; J7120; 00811

== ENCOUNTER 2024-03-26 05:48 | Emergency (ER) | payer SELFPAY ==
[2024-03-26 06:19] LABS: BASOPHILS ABSOLUTE AUTO 0.03 K/uL (0.00-0.20); BASOPHILS PERCENT AUTO 0.2 % (0.0-1.0); HEMATOCRIT 41.5 % (37.0-47.0); HEMOGLOBIN 14.2 g/dL (12.0-16.0); IMMATURE GRAN ABSOLUTE AUTO 0.06 K/uL (0.00-0.05); IMMATURE GRAN PERCENT AUTO 0.4 % (0.0-0.4); LYMPHOCYTES ABSOLUTE AUTO 2.12 K/uL (1.00-4.80); MEAN CORPUSCULAR HEMOGLOBIN 29.3 pg (28.0-32.0); MEAN CORPUSCULAR HGB CONC 34.2 g/dL (32.0-36.0); MEAN CORPUSCULAR VOLUME 85.6 fL (83.0-99.0); MEAN PLATELET VOLUME 9.4 fL (9.4-12.3); MONOCYTES ABSOLUTE AUTO 0.79 K/uL (0.00-0.80); MONOCYTES PERCENT AUTO 4.9 % (0.0-8.0); NEUTROPHILS ABSOLUTE AUTO 13.25 K/uL (1.80-7.70); NEUTROPHILS PERCENT AUTO 81.5 % (41.0-71.0); PLATELET COUNT,PLT 276 K/uL (150-400); RED BLOOD CELL COUNT 4.85 M/uL (4.10-5.30); WHITE BLOOD CELL COUNT,WBC 16.25 K/uL (3.9-11.3)
[2024-03-26] MEDS: Sodium Chloride 0.9% 10 ML Syringe FLUSH PRN (06:19)
[2024-03-26] MEDS: LORazepam 2 MG/ML SDV IVPUSH ONE (06:19)
[2024-03-26] MEDS: Sodium Chloride 0.9% 2.5 ML Syringe FLUSH PRN (06:19)
[2024-03-26 06:26] LABS: INR 1.01 (0.86-1.11)
[2024-03-26 06:35] LABS: A/G RATIO 1.2 (0.9-1.6); ALANINE AMINOTRANSFERASE,ALT 17 IU/L (14-63); ALBUMIN 4.2 g/dL (3.4-5.0); ALKALINE PHOSPHATASE 68 U/L (46-116); ASPARTATE AMNIOTRANSFERASE,AST 14 IU/L (15-37); BILIRUBIN TOTAL 0.5 mg/dL (0.2-1.0); BLOOD UREA NITROGEN,BUN 9 mg/dL (7.0-18.0); CALCIUM 9.4 mg/dL (8.5-10.1); CARBON DIOXIDE,CO2 25.8 mmol/L (21.0-32.0); CHLORIDE,CL 106 mmol/L (98-107); CREATININE 0.7 mg/dL (0.6-1.0); GLUCOSE RANDOM 115 mg/dL (74-106); LIPASE 35 U/L (16-77); POTASSIUM,K 3.7 mmol/L (3.5-5.1); PROTEIN TOTAL,TP 7.6 g/dL (6.4-8.2); SODIUM,NA 142 mmol/L (136-145)
[2024-03-26 06:44] LABS: ESTIMATED GFR 121 mL/min (>60)
[2024-03-26] MEDS: Iopamidol 755 MG/ML 500 ML Multipack Bottle IVPUSH STA (07:10)
[2024-03-26 07:26] LABS: TSH ULTRASENSITIVE 0.98 uIU/mL (0.36-3.74)
[2024-03-26] MEDS: Ketorolac 30 MG/ML SDV IVPUSH ONE (08:15)
== END 2024-03-26 09:27 | disposition home or self-care (01) ==
LOC: MW.ED 05:48
DX: R07.9 Chest pain, unspecified (principal); Z79.899 Other long term (current) drug therapy; Z88.0 Allergy status to penicillin; Z88.1 Allergy status to other antibiotic agents; Z91.048 Other nonmedicinal substance allergy status
CPT/HCPCS: 36415; 71045; 71275; 80053; 83690; 84443; 84484; 84703; 85025; 85610; 93005; 96374; 96375; 99285; J1885; J2060; J3490; Q9967; 99284